=== PATIENT | female | born 1970 | race African-American/Black ===

== ENCOUNTER 2023-07-29 02:47 | Emergency (ER) | payer BC, SELFPAY ==
[2023-07-29 02:51] VITALS: BP 132/71; PULSE 68; RESP 20; TEMP 36.1; O2SAT 100; BMI 26.5
--- NOTE | 2023-07-29 03:07 | ED.EYEPROB ---
HPI - Eye Problem General Chief complaint: Eye Problems Stated complaint: Has something in her R eye Time Seen by Provider: 07/29/23 03:07 History of Present Illness HPI Narrative: Patient is a 53-year-old woman who awoke in the middle night feeling like there was a scratch on her right eye. She feels like it hair is irritating her eye. She has no change in her visual acuity. She has no underlying ocular difficulties. She came in immediately after weight getting a and is asking for help with pain in the right eye. She feels like there is something under the upper eyelid. Related Data Home Medications Medication Instructions Recorded Confirmed No Known Home Medications 07/29/23 07/29/23 Allergies Allergy/AdvReac Type Severity Reaction Status Date / Time No Known Allergies Allergy Verified 07/29/23 02:51 Review of Systems Status of ROS: Reports: 10 or more systems reviewed and unremarkable except as noted in History and below [facility] Surgical History Status post delivery ?Z98.891 - History of uterine scar from previous surgery (ICD-10) Social History Smoking Status: Never smoker Non-prescribed substance use: denies use Exam Narrative: Exam Narrative: EXAM GENERAL: Patient appears comfortable and well. EYES: No scleral icterus. Right eye is held shot forcefully during most of my exam. No conjunctiva will irritation noted. LYMPH: No supraclavicular or cervical lymphadenopathy. SKIN: Visible skin seen during exam normal or with benign process only. EXT: No dependent lower extremity pedal edema. ABD: Soft, non tender, non distended. PSYCH: Good eye contact, speech is not pressured. Const: Vital Signs, click to edit/add: Vital Signs - 24 hr 07/29/23 02:51 Temperature 96.9 F L Pulse Rate [Pulse Oximeter] 68 Respiratory Rate 20 Blood Pressure [Ri ght Upper Arm] 132/71 Pulse Oximetry 100 Oxygen Delivery Me thod Room Air Course Course ED Course: I did see her immediately and try to get tetracaine in her right eye. Her ability to cooperate was limited. Once suitable anesthesia had been a T GB did irrigate her I and swept the upper and lower lid with a sterile cotton swab. She Vital Signs Vital signs: Initial Vital Signs Temperature 96.9 F L 07/29/23 02:51 Temperature Source Temporal Artery Scan 07/29/23 02:51 Pulse Rate 68 07/29/23 02:51 Pulse Strength 3+ Normal 07/29/23 02:51 Respiratory Rate 20 07/29/23 02:51 Blood Pressure 132/71 07/29/23 02:51 Blood Pressure Mean 91 07/29/23 02:51 Blood Pressure Position Sitting 07/29/23 02:51 Pulse Oximetry 100 07/29/23 02:51 Oxygen Delivery Method Room Air 07/29/23 02:51 Vital Signs Temperature 96.9 F L 07/29/23 02:51 Pulse Rate 68 07/29/23 02:51 Respiratory Rate 20 07/29/23 02:51 Blood Pressure 132/71 07/29/23 02:51 Pulse Oximetry 100 07/29/23 02:51 Oxygen Delivery Method Room Air 07/29/23 02:51 Temperature 96.9 F L 07/29/23 02:51 Pulse Rate 68 07/29/23 02:51 Respiratory Rate 20 07/29/23 02:51 Blood Pressure 132/71 07/29/23 02:51 Pulse Oximetry 100 07/29/23 02:51 Oxygen Delivery Method Room Air 07/29/23 02:51 MDM - Eye Problem MDM Narrative Medical decision making narrative: Patient presents with eye pain. I did provide local anesthesia and sweep the upper lower lid as well as irrigated the eye. The eye appears normal grossly although irritated. Patient had suboptimal control of her pain however I do not see any foreign bodies I do feel that heard most likely diagnosis is corneal abrasion. I did make every effort to get as much of the tetracaine drops into her eyes I could and make sure nothing was in her eye. I explained that there is not much more I can do to help tonight. I did give her the number to [facility] send her to contact in the morning for symptoms recur or worsen. She seems frustrated with me in a not certain why. Again differential diagnosis includes but not limited to corneal abrasion foreign body iritis conjunctivitis. Discharge Plan Discharge Clinical Impression: Abrasion, corneal Condition: Stable Instructions: Corneal Abrasion (ED) Additional Instructions: Careful not to scratch her eye any further Follow-up tomorrow at [facility] if symptoms persist. Activity Level: No Restrictions Discharge Diet: Regular Prescriptions: No Action No Known Home Medications Follow Up/Referrals: Julio Finnegan MD [Primary Care Provider] - Stand Alone Forms: [employer] Info Instructions
[2023-07-29] MEDS: TETRACAINE 0.5% OPHTH 2 DROP EYE-RIGHT (03:13)
== END 2023-07-29 03:24 | disposition other institution (70) ==
LOC: ED 03:12
PROVIDERS: Emergency Provider Internal Medicine; PCP Family Medicine
DX: S05.01XA Injury of conjunctiva and corneal abrasion without foreign body, right eye, initial encounter (principal)
CPT/HCPCS: 99282; 99283